=== PATIENT | female | born 1985 | race Caucasian/White ===

== ENCOUNTER 2023-06-18 11:02 | Outpatient (CLI) | payer BC ==
[2023-06-18 11:50] VITALS: RESP 16
[2023-06-18 11:53] LABS: Appearance,Urine Clear (Clear); Bacteria,Urine Few /hpf; Bilirubin,Urine Negative (Negative); Blood,Urine Negative (Negative); Color,Urine Colorless; Glucose,Urine (UA) Negative (Negative); Ketones,Urine Negative (Negative); Leukocyte Esterase,Urine Moderate (Negative); Mucus,Urine Rare /hpf; Nitrite,Urine Negative (Negative); Protein,Urine Negative (Negative); RBC,Urine 2 /hpf (0-5); Specific Gravity,Urine 1.007 (1.001-1.035); Squamous Epithelial Cell,Urine 1 /hpf (0-4); Urobilinogen,Urine <2.0 mg/dL (<2.0); WBC,Urine 2 /hpf (0-5)
[2023-06-18 12:10] LABS: Basophils # (A) 0.1 k/uL (0-0.2); Basophils % (A) 0 %; Eosinophils # (A) 0.3 k/uL (0-0.7); Eosinophils % (A) 2 %; HGB 12.9 gm/dL (11.4-16.0); Lymphocytes # (A) 1.6 k/uL (1.0-4.8); Lymphocytes % (A) 10 %; MCHC 34.1 g/dL (31.0-37.0); Monocytes # (A) 0.6 k/uL (0-1.0); Monocytes % (A) 4 %; Neutrophils # (A) 12.5 k/uL (1.3-7.7); Neutrophils % (A) 82 %; Platelet Count 228 k/uL (150-450); RBC 4.17 m/uL (3.80-5.40); RDW 12.9 % (11.5-15.5); WBC 15.3 k/uL (3.8-10.6)
[2023-06-18 12:11] LABS: Protein/Creatinine Ratio,Urine 0.261
[2023-06-18 12:28] LABS: Uric Acid 3.1 mg/dL (3.7-7.4)
[2023-06-18 13:25] VITALS: BP 136/75; PULSE 89; TEMP 98.1
== END 2023-06-18 13:06 | disposition home or self-care (01) ==
LOC: FBPOP 11:02
PROVIDERS: ATTEND Obstetrics & Gynecology Obstetrics
DX: O13.3 Gestational [pregnancy-induced] hypertension without significant proteinuria, third trimester (principal); Z3A.34 34 weeks gestation of pregnancy
CPT/HCPCS: 59025; 81001; 82570; 83615; 84156; 84450; 84460; 84550; 85025

== ENCOUNTER 2023-07-27 16:42 | Inpatient (IN) | payer BC ==
[2023-07-27] MEDS: DINOPROSTONE 10 MG INSERT.ER VAGINAL ONE (17:35)
[2023-07-27] MEDS ORDERED: NALBUPHINE 10 MG/ML (10 ML MDV) IV PRN (17:46)
--- NOTE | 2023-07-27 17:46 | P.HPOB ---
History of Present Illness H&P Date: 07/27/23 Chief Complaint: IUP @ 39 weeks This is a 38-year-old G1, P0 at 39 5/7 weeks of gestation that presents to labor and delivery for scheduled induction of labor. EDC 07/29 based on LMP c/w 8 week US. Patient has been receiving routine care which has been essentially uncomplicated. Patient notes good movement denies contractions vaginal bleeding or loss of fluid. On blood work this patient is a blood type of O+, rubella status immune, hepatitis B surface antigen negative, HIV negative, RPR is nonreactive, grew beta strep culture is negative. She did pass her 1 hour gestational diabetes screen, she received Tdap on 05/18 Review of Systems Constitutional: Denies chills, Denies fatigue, Denies fever Ears, nose, mouth and throat: Denies headache Cardiovascular: Reports leg edema Respiratory: Denies dyspnea Gastrointestinal: Denies constipation, Denies diarrhea, Denies nausea, Denies vomiting Genitourinary: Reports Past Medical History History of Any Multi-Drug Resistant Organisms: None Reported Past Surgical History: No Surgical Hx Reported Past Anesthesia/Blood Transfusion Reactions: No Reported Reaction Smoking Status: Never smoker - Past Family History Mother Family Medical History: Hypertension Father Family Medical History: Diabetes Mellitus Medications and Allergies Home Medications Medication Instructions Recorded Confirmed Type Aspirin 81 mg PO DAILY 06/18/23 07/27/23 History Vit No.179/Iron/Folic 1 each PO DAILY 06/18/23 07/27/23 History [ Tablet] Allergies Allergy/AdvReac Type Severity Reaction Status Date / Time No Known Allergies Allergy Verified 06/18/23 11:17 Exam Osteopathic Statement: *. No significant issues noted on an osteopathic structural exam other than those noted in the History and Physical/Consult. Vital Signs Temp Pulse Resp BP Pulse Ox 07/27/23 16:52 98.8 F 97 16 137/79 96 Intake and Output 07/27/23 07/27/23 07/27/23 06:59 14:59 22:59 Other: Weight 78.471 kg Targeted physical exam is performed this date General is a well-nourished well- developed female in no acute distress, breathing is noted to be nonlabored, heart has a regular rate and rhythm, abdomen is gravid and appropriate for gestational age, on cervical exam she is 1/70/-3 station vertex presentation, heart tones are noted to be category 1 and she is not arsen. Assessment and Plan (1) Term Current Visit: Yes Status: Acute Code(s): Z34.90 - ENCNTR FOR SUPRVSN OF NORMAL , UNSP, UNSP TRIMESTER SNOMED Code(s): 51989133 Plan: 38-year-old 1 para 0 at 39-5/7 weeks presents for induction of labor. Patient is admitted to labor and delivery and Cervidil induction is begun. Options for analgesia are discussed including Nubain, nitrous, epidural. Patient will consider.
[2023-07-27 18:10] LABS: Basophils # (A) 0.1 k/uL (0-0.2); Basophils % (A) 0 %; Eosinophils # (A) 0.2 k/uL (0-0.7); Eosinophils % (A) 1 %; HCT 35.7 % (34.0-46.0); HGB 12.6 gm/dL (11.4-16.0); Lymphocytes # (A) 1.6 k/uL (1.0-4.8); Lymphocytes % (A) 11 %; MCH 31.9 pg (25.0-35.0); MCHC 35.2 g/dL (31.0-37.0); MCV 90.7 fL (80.0-100.0); Mean Platelet Volume 8.9; Monocytes # (A) 0.7 k/uL (0-1.0); Monocytes % (A) 5 %; Neutrophils # (A) 12.4 k/uL (1.3-7.7); Neutrophils % (A) 82 %; Platelet Count 219 k/uL (150-450); RBC 3.94 m/uL (3.80-5.40); RDW 13.3 % (11.5-15.5); WBC 15.1 k/uL (3.8-10.6)
[2023-07-28] MEDS ORDERED: METHYLERGONOVINE 0.2 MG/ML 1 ML AMP IM PRN ×2 (06:26→17:36)
[2023-07-28] MEDS ORDERED: TERBUTALINE 1 MG/ML VIAL SQ PRN (06:26)
[2023-07-28] MEDS ORDERED: LIDOCAINE 0.5% (PF) 5 MG/ML (50 ML SDV) SQ PRN (06:26)
[2023-07-28] MEDS ORDERED: OXYTOCIN 10 UNIT/ML 1 ML VIAL IM PRN ×2 (06:26→17:36)
[2023-07-28] MEDS ORDERED: TRANEXAMIC 1,000 MG/100ML-NACL 1,000 MG in EMPTY BAG 1 BAG IV PRN ×2 (06:26→17:36)
[2023-07-28] MEDS ORDERED: miSOPROStoL 200 MCG TAB PO PRN ×2 (06:26→17:36)
[2023-07-28] MEDS ORDERED: CARBOPROST TROMETHAMINE 250 MCG/ML 1 ML AMP IM PRN ×2 (06:26→17:36)
[2023-07-28] MEDS: OXYTOCIN 30 UNITS/500 ML NS 30 UNIT in SALINE 1 500ML.BAG IV SCH (06:30)
[2023-07-28] MEDS: LACTATED RINGERS 1,000 ML IV SCH ×2 (06:34→22:45)
[2023-07-28] MEDS: CITRIC ACID-SODIUM CITRATE 15 ML CUP PO ONE ×2 (17:32→18:29)
[2023-07-28] MEDS ORDERED: MORPHINE SULFATE (PF) 0.3 MG/0.3 ML SYR ONE (17:38)
[2023-07-28] MEDS ORDERED: NALBUPHINE 10 MG/ML (10 ML MDV) ONE (17:38)
[2023-07-28] MEDS ORDERED: ONDANSETRON 4 MG/2 ML VIAL ONE (17:38)
[2023-07-28] MEDS ORDERED: OXYTOCIN 30 UNITS/500 ML NS BAG IV ONE (17:38)
--- NOTE | 2023-07-28 18:22 | P.OP ---
Date of Procedure: 07/28/23 Preoperative Diagnosis: IUP at 40 and 0, arrest of labor Postoperative Diagnosis: Same Procedure(s) Performed: Primary low-transverse section Anesthesia: spinal Surgeon: Maryjane Aguilera Cubing Machine Tender #1: Madison Ziegler Pathology: none sent Condition: stable Disposition: observation Indications for Procedure: 38-year-old G1, P0 at 40-0/7 weeks presented last evening for scheduled Cervidil induction of labor. Patient was admitted and Cervidil was placed without difficulty. Patient made no change through the night, Cervidil was pulled and Pitocin augmentation of labor was begun. Amniotomy was performed and clear fluid was obtained. Patient made no progress through the day no cervical dilation was appreciated for approximately 9 hours, despite amniotomy and Pitocin augmentation of labor. heart tones remained category 1 and she was arsen every 2 to 3 minutes on 32 of Pitocin. Patient was counseled on lack of progress and options for continuing, patient states she would like to proceed with primary . Options were reviewed once again and patient and myself made the decision to proceed with primary secondary to arrest of for stage of labor. Patient states her mom had a very similar labor, stalled for stage as well. Operative Findings: Normal uterus tubes and ovaries were appreciated, viable male delivered at 1755, weight of 7 pounds 12 ounces, Apgars of 9 and 9 at 1 and 5 minutes respectively. Description of Procedure: The patient was prepped and draped in the usual fashion after spinal anesthesia was administered by the anesthesia department. A Pfannenstiel incision was made and extended of the abdominal cavity without difficulty. The bladder peritoneum was elevated and incised and reflected distally. A 2 cm incision was made in the transverse plane of the lower uterine segment to enter the uterus at which time clear fluid was noted. The incision was extended in both directions bluntly. The head was encountered within the field and delivered up and through the incision where the nose and mouth were thoroughly suctioned. Remainder of the infant was delivered onto the surgical field where the cord was doubly clamped, cut, and the infant was passed for resuscitative measures with weight and Apgars as noted above. The placenta was delivered manually, intact, and was grossly normal with a grossly normal three-vessel cord. The uterus was exteriorized and the interior cavity of the uterus swept of any remaining placental and membranous fragments with a laparotomy sponge. The margins of the incision were grasped with Allis clamps and the incision closed in 2 layers. First layer was a running locking layer of 0 Vicryl from margin to margin followed by a second layer of imbricating 0 Vicryl from margin to margin. Any small points of bleeding were then made hemostatic with the Bovie. Once hemostasis was achieved, the posterior cul-de-sac was suctioned with a guard and the uterine and ovarian findings are as noted above. The uterus was replaced within the abdominal cavity and the gutters swept of any remaining blood fluid or clot. The incision was again reexamined and hemostasis was noted to be excellent. Any small point of bleeding were made hemostatic with the Bovie. Once hemostasis was achieved the parietal peritoneum was loosely reapproximated. The layer of muscles were examined and made hemostatic with the Bovie. Attention was then turned to the fascia which was closed with 2 running stitches of 0 Vicryl proceeding from the lateral margins to the midpoint. The subcutaneous tissues were irrigated, made hemostatic with the Bovie, and reapproximated with a running stitch of 30 Vicryl. The skin was reapproximated with 4-0 Vicryl. Estimated blood loss for the case was approximately 270 mL. All sponge instrument and needle counts are correct. There were no complications. The patient tolerated the procedure well and proceeded to the recovery room in stable condition. Both mother and are resting comfortably in recovery.
[2023-07-28] MEDS ORDERED: ZOLPIDEM 5 MG TAB PO PRN (18:53)
[2023-07-28] MEDS ORDERED: ONDANSETRON 4 MG/2 ML VIAL IVP PRN (18:53)
[2023-07-28] MEDS ORDERED: diphenhydrAMINE 50 MG/ML 1 ML VIAL IVP PRN ×2 (18:53)
[2023-07-28] MEDS ORDERED: diphenhydrAMINE 50 MG CAP PO PRN (18:53)
[2023-07-28] MEDS ORDERED: SIMETHICONE 80 MG CHEWABLE PO PRN (18:53)
[2023-07-28] MEDS ORDERED: NALOXONE 0.4 MG/ML 1 ML VIAL IV PRN (18:53)
[2023-07-28] MEDS ORDERED: diphenhydrAMINE 25 MG CAP PO PRN (18:53)
[2023-07-28] MEDS ORDERED: METOCLOPRAMIDE 5 MG/ML 2 ML VIAL IVP PRN (18:53)
[2023-07-28] MEDS: ACETAMINOPHEN IV (For NPO) 1,000 MG in EMPTY BAG 1 BAG IVPB SCH (19:43)
[2023-07-28] MEDS: SENNOSIDES-DOCUSATE SODIUM 1 EACH TAB PO SCH (20:01)
[2023-07-28] MEDS: IBUPROFEN IV 800 MG in SODIUM CHLORIDE 0.9% 250 ML IV SCH (22:42)
[2023-07-29] MEDS: IBUPROFEN 600 MG TAB PO SCH (01:58)
[2023-07-29 06:28] LABS: Basophils # (A) 0.1 k/uL (0-0.2); Basophils % (A) 0 %; Eosinophils # (A) 0.2 k/uL (0-0.7); Eosinophils % (A) 1 %; HCT 35.3 % (34.0-46.0); HGB 11.8 gm/dL (11.4-16.0); Lymphocytes # (A) 1.5 k/uL (1.0-4.8); Lymphocytes % (A) 10 %; MCH 30.6 pg (25.0-35.0); MCHC 33.4 g/dL (31.0-37.0); MCV 91.8 fL (80.0-100.0); Mean Platelet Volume 9.2; Monocytes # (A) 0.6 k/uL (0-1.0); Monocytes % (A) 4 %; Neutrophils # (A) 12.5 k/uL (1.3-7.7); Neutrophils % (A) 83 %; Platelet Count 207 k/uL (150-450); RBC 3.84 m/uL (3.80-5.40); RDW 13.3 % (11.5-15.5); WBC 15.1 k/uL (3.8-10.6)
[2023-07-29] MEDS: ACETAMINOPHEN TAB 500 MG TAB PO SCH (07:33)
[2023-07-29] MEDS: PRENATAL VIT-IRON-FOLIC ACID 1 EACH TABLET PO SCH (08:14)
--- NOTE | 2023-07-29 08:36 | P.PNOBGPC ---
Subjective - Subjective Principal diagnosis: Postop day 1 Interval history: Patient is doing well postoperatively. She is ambulating and voiding without difficulty. She states her pain is well-controlled. Her lochia is minimal. She is breast-feeding. Patient reports: Reports appetite normal, Reports voiding normally, Reports pain well controlled, Reports ambulating normally [place]: doing well, nursing well Objective - Vital Signs Latest vital signs: Vital Signs Temp Pulse Resp BP Pulse Ox 07/29/23 07:15 98.2 F 71 16 115/68 96 07/29/23 00:00 98.5 F 95 16 131/69 97 07/28/23 20:26 87 16 117/70 100 07/28/23 20:10 63 16 117/68 98 07/28/23 19:56 65 16 116/62 99 07/28/23 19:41 71 16 111/59 99 07/28/23 19:26 76 16 136/68 98 07/28/23 19:11 70 16 114/65 98 07/28/23 18:56 71 16 114/67 97 07/28/23 18:45 97.2 F L 72 18 106/57 98 07/28/23 18:30 96.7 F L 89 18 103/66 98 Intake and Output 07/28/23 07/29/23 07/29/23 22:59 06:59 14:59 Intake Total 24 Output Total 320 1700 Balance -296 -1700 Intake: Intake, IV Titration 24 Amount Oxytocin 30 Units/500 ml 24 Ns 30 unit In Saline 1 500ml.bag @ Per Protocol IV .Q0M [facility] Rx#:[id number] Output: Urine 1700 Output, Quantitative 320 Blood Loss Other: # Voids 1 - Exam Extremities: Present: normal, edema Abdomen: Present: normal appearance, soft Incision: Present: normal, dry, intact Uterus: Present: normal, firm - Labs Labs: Abnormal Lab Results - Last 24 Hours (Table) 07/29/23 Range/Units 05:56 WBC 15.1 H (3.8-10.6) k/uL Neutrophils # 12.5 H (1.3-7.7) k/uL Assessment and Plan (1) Term Current Visit: Yes Status: Acute Code(s): Z34.90 - ENCNTR FOR SUPRVSN OF NORMAL , UNSP, UNSP TRIMESTER SNOMED Code(s): 32853403 (2) Status post Current Visit: Yes Status: Acute Code(s): Z98.891 - HISTORY OF UTERINE SCAR FROM PREVIOUS SURGERY SNOMED Code(s): 195336525 (3) Arrest of dilation, delivered, current hospitalization Current Visit: Yes Status: Acute Code(s): O62.1 - SECONDARY UTERINE INERTIA SNOMED Code(s): 31365826 Plan: 38-year-old G1 now P1 s/p primary for arrest of dilation. Patient is doing well postoperatively. Plan to continue routine postoperative care. Anticipate discharge home tomorrow.
--- NOTE | 2023-07-30 08:25 | P.PN ---
Progress Note - Text Progress Note Date: 07/30/23 Postoperative day 1 status post section under spinal anesthesia, and intrathecal morphine given for postoperative analgesia, patient doing well, there is no anesthesia related complications, Patient had no headache, vital signs stable , Assessment and plan= postop day 1 status post , doing well there is no anesthesia related complication.
--- NOTE | 2023-07-30 12:09 | P.DS ---
Providers Date of admission: 07/27/23 16:42 Expected date of discharge: 07/30/23 Attending physician: Maryjane Aguilera Primary care physician: Iraida Arias - Discharge Diagnosis(es) (1) Term Current Visit: Yes Status: Acute (2) Status post Current Visit: Yes Status: Acute (3) Arrest of dilation, delivered, current hospitalization Current Visit: Yes Status: Acute Hospital Course: This is a 38-year-old 1 now para 1 who presented to labor and delivery on 07/27 for scheduled Cervidil induction of labor. Patient has been receiving routine care which has been essentially uncomplicated. For full details in this patient please see the dictated history and physical. Patient was admitted and Cervidil was placed without difficulty. Patient was noted to be 1 cm at the time of placement. Patient was comfortable through the night when Cervidil was removed no cervical change was noted patient was begun on Pitocin augmentation of labor. Amniotomy was performed and clear fluid was obtained. Throughout the day Pitocin was increased to 32 with no change in discomfort or cervix. Patient was counseled on arrest of labor. Patient states her mom did a very similar thing and she request to proceed with primary C- section. Patient was taken back to the operative suite where was performed without difficulty. Viable male was delivered at 1755, weight of 7 pounds 12 ounces, Apgars of 9 and 9 at 1 and 5 minutes respectively. Patient's postoperative course has been uneventful. On this postoperative day #2 she is ambulating and voiding without difficulty. She is tolerating a regular diet without nausea or vomiting. States her pain is well-controlled. She denies concerns and would like discharge home later today. Patient Condition at Discharge: Good Plan - Discharge Summary New Discharge Prescriptions: No Action Vit No.179/Iron/Folic [ Tablet] 1 each PO DAILY Aspirin 81 mg PO DAILY Discharge Medication List Aspirin 81 mg PO DAILY 06/18/23 [History] Vit No.179/Iron/Folic [ Tablet] 1 each PO DAILY 06/18/23 [Histo ry] Follow up Appointment(s)/Referral(s): Maryjane Aguilera DO [Doctor of Osteopathic Medicine] - 2 Weeks Patient Instructions/Handouts: (DC), (GEN) Activity/Diet/Wound Care/Special Instructions: No intercourse, tampons or douching. No heavy lifting greater than a gallon of milk. No driving for two weeks. Call with any fever, shakes or chills, with any pain not alleviated by over the counter meds, or with any quesions or concerns. Discharge Disposition: HOME SELF-CARE
[2023-07-30 12:27] VITALS: BP 136/82; PULSE 81; RESP 17; TEMP 97.8
== END 2023-07-30 14:50 | disposition home or self-care (01) | DRG 788 ==
LOC: 4FBP 16:42
PROVIDERS: ADMIT Obstetrics & Gynecology Obstetrics; ATTEND Obstetrics & Gynecology Obstetrics
PROC: 3E033VJ Introduction of Other Hormone into Peripheral Vein, Percutaneous Approach (ICD-10-PCS; principal; 2023-07-28 18:08)
PROC: 3E0P7VZ Introduction of Hormone into Female Reproductive, Via Natural or Artificial Opening (ICD-10-PCS; principal; 2023-07-28 18:08)
PROC: 10D00Z1 Extraction of Products of Conception, Low, Open Approach (ICD-10-PCS; principal; 2023-07-28 18:08)
PROC: 10907ZC Drainage of Amniotic Fluid, Therapeutic from Products of Conception, Via Natural or Artificial Opening (ICD-10-PCS; principal; 2023-07-28 18:08)
DX: O62.0 Primary inadequate contractions (principal); O61.0 Failed medical induction of labor; Z79.82 Long term (current) use of aspirin; Z3A.39 39 weeks gestation of pregnancy; Z37.0 Single live birth
CPT/HCPCS: 85025; 86850; 86900; 86901